=== PATIENT | female | born 1955 | race Caucasian/White ===

== ENCOUNTER → 2021-06-15 | Outpatient (CLI) | payer OTHER ==
[2021-06-15 18:57] LABS: BASO # 0.1 x10^3/uL (0.0-0.2); BASO % 1 % (0-3); EOS # 0.1 x10^3/uL (0.0-0.7); EOS % 1 % (0-3); HEMATOCRIT 44.1 % (36.0-47.0); HEMOGLOBIN 15.1 g/dL (12.0-15.5); LYMPH # 3.1 x10^3/uL (1.0-4.8); LYMPH % 33 % (24-48); MEAN CORPUSCULAR HEMOGLOBIN 33 pg (25-35); MEAN CORPUSCULAR HGB CONC 34 g/dL (31-37); MEAN CORPUSCULAR VOLUME 96 fL (79-100); MONO # 0.6 x10^3/uL (0.0-1.1); MONO % 6 % (0-9); NEUT # 5.5 x10^3uL (1.8-7.7); NEUT % 58 % (31-73); PLATELET COUNT 258 x10^3/uL (140-400); RED CELL DISTRIBUTION WIDTH 13.4 % (11.5-14.5); WHITE BLOOD COUNT 9.4 x10^3/uL (4.0-11.0)
[2021-06-15 19:10] LABS: ALBUMIN 3.9 g/dL (3.4-5.0); ALBUMIN/GLOBULIN RATIO 1.1 (1.0-1.7); CALCIUM 8.8 mg/dL (8.5-10.1); CREATININE 0.8 mg/dL (0.6-1.0); GFR 72.2; TOTAL BILIRUBIN 0.4 mg/dL (0.2-1.0); TOTAL PROTEIN 7.3 g/dL (6.4-8.2)
--- NOTE | 2021-06-15 21:03 | RAD ---
Left Lower Extremity Venous Doppler: Reason for examination: Left lower extremity calf pain. The left lower extremity venous system was evaluated from the common femoral and greater saphenous ve ins distally to the calf veins with grayscale imaging, color-flow imaging and spectral analysis. There is normal blood flow without deep venous thrombosis. There is normal response of the venous sys tems to compression and augmentation. Impression: No deep venous thrombosis in the left lower extremity venous system. Electronically signed by: Nupur Palmer MD (06/15/2021 9:00 PM) YOHANA
[2021-06-16 18:24] LABS: THYROID STIM HORMONE (TSH) 3.84 uIU/mL (0.358-3.740)
== END ==
LOC: US 18:03
PROVIDERS: ATTEND Family Medicine
DX: M79.662 Pain in left lower leg (principal)
CPT/HCPCS: 36415; 80053; 80061; 82550; 84443; 84484; 85025; 93971

== ENCOUNTER → 2021-08-06 | Outpatient (CLI) | payer OTHER ==
[~2021-08-06] MED LIST: ALBU2.5V8 INH; ASPI-630 PO; BLAC160C PO; FEXO1TAB27 PO; MULT-245 PO
--- NOTE | 2021-08-06 14:32 | RAD ---
MR#: [id number] Date of Study: 08/06/2021 Ordering Physician: LISSET CHAN, Referring Physician: DEU CLAYTON Tech: RT Adrien (Jose) (N) APPROVED REPORT Test Type: Exercise Stress Nurse/Tech: RT Adrien (R) (N) Test Indications: chest pain Cardiac History: none Medications: see EHR Medical History: smoker Resting ECG: sinus rhythm Resting Heart Rate: 79 bpm Resting Blood Pressure: 169/95mmHg Pretest Chest Pain: None Nurse/Tech Notes Consent: The procedure was explained to the patient in lay terms. Informed consent was witnessed. Juan marrero was entered into [facility]. History and Stress Test performed by RT Adrien (Jose) (N) POST EXERCISE Reason for Termination: Fatigue Target HR: Yes Max HR: 145 bpm 92% of Maximum Predicted HR: 157 bpm Exercise duration: 2:56 min:sec, 1 Stage Exercise capacity: 4.6METs Max Blood Pressure: 215/97mmHg INTERPRETATION Stress EKG Conclusion: No acute changes were noted. Poor exercise tolerance Imaging Protocol IMAGE PROTOCOL: Rest Tc-99m/stress Tc-99m 1 day Rest: Stress: Viability: Radiopharm.Tc99m [id number] Sestamibi Dose10.6mCi 32mCi Duration 15min. 10min. Img Date 08/06/2021 08/06/2021 Inj-Img [id number]. 60min. Post-Injection Exercise: 1 minute Rest Admin Site:IV - Right AntecubitalAdministrator: RT Adrien (Jose)(N) Stress Admin Site: IV - Right AntecubitalAdministrator: RT Adrien (Jose)(N) STRESS DATA End Diast. Vol.52.0mlAv. Heart Rate85.0bpm End Syst. Vol.3.0mlCO Index BSA0.0L/min Myocardial Mass97.0gEject. Jmhbdxmh59.0% Stress Rates Pk. Fill Rate3.14EDV/secLVtime Pk. Fill 192.45msec Pk. Empty Rate4.74ESV/secLVtime Pk. Eject90.88msec /3 Pk. Fill1.82EDV/sec Stress Scores Regional WT2.00Summed WT2.00 Regional WM0.00Summed WM0.00 LV Perf. Quant 17 Seg. SSS2.00 17 Seg. SRS4.00 17 Seg. SDS0.00 Stress Defect Extent (% LAD)1.90Rest Defect Extent (% LAD)11.90Rev. Defect Extent (% LAD)0.00 Stress Defect Extent (% LCX) 20.00Rest Defect Extent (% LCX)11.30Rev. Defect Extent (% LCX)2.50 Stress Defect Extent (% RCA)0.00Rest Defect Extent (% RCA)0.00Rev. Defect Extent (% RCA)0.00 Stress Defect Extent (% RICHARD)4.80Rest Defect Extent (% RICHARD)8.50Rev. Defect Extent (% RICHARD)0.40 Other Information Quality:Average Risk Assessment: Low Risk Conclusion 1. No evidence of EKG changes with stress testing. Poor exercise capacity. Hypertensive BP response. 2. Normal perfusion at stress/rest. 3. Low risk study. 4. EF > 60%. Signed by : Edward Nye, Electronically Approved : 08/06/2021 14:32:11
== END ==
LOC: NM 07:50
PROVIDERS: ATTEND Internal Medicine Cardiovascular Disease
DX: I10 Essential (primary) hypertension (principal)
CPT/HCPCS: 78452; 93017; A9500; 96376